=== PATIENT | male | born 1995 | race Caucasian/White ===

== ENCOUNTER 2017-04-14 17:43 | Emergency (ER) | payer SELFPAY ==
[2017-04-14 18:12] VITALS: BP 114/66
--- NOTE | 2017-04-14 18:52 | UC ---
Complaint Male HPI - HPI Summary HPI Summary: 22 yo male with warts on penis x weeks no urethral d/c or dysuria no pain no ulcerations - History of Current Complaint Chief Complaint: UCSkin Stated Complaint: PERSONAL Time Seen by Provider: 04/14/17 18:27 Hx Obtained From: Patient Onset/Duration: Gradual Onset, Lasting Weeks Timing: Constant Severity Initially: Mild Severity Currently: Mild Pain Intensity: 0 Pain Scale Used: 0-10 Numeric Location: Penis Associated Signs And Symptoms: Positive: Negative - Allergies/Home Medications Allergies/Adverse Reactions: Allergies Allergy/AdvReac Type Severity Reaction Status Date / Time No Known Allergies Allergy Verified 04/14/17 18:06 Home Medications: Home Medications NK [No Home Medications Reported] 04/14/17 [History Confirmed 04/14/17] PMH/Surg Hx/FS Hx/Imm Hx Previously Healthy: Yes - Surgical History Surgical History: None - Family History Known Family History: Negative: Cardiac Disease, Hypertension - Social History Alcohol Use: Occasionally Substance Use Type: None Smoking Status (MU): Current Some Day Smoker Type: Smokeless Tobacco Amount Used/How Often: 1 can q 3 days - Immunization History Most Recent Influenza Vaccination: Not the Vaccination Up to Date: Yes Review of Systems Constitutional: Negative Skin: Negative Eyes: Negative ENT: Negative Respiratory: Negative Cardiovascular: Negative Gastrointestinal: Negative Genitourinary: Negative Motor: Negative Neurovascular: Negative Musculoskeletal: Negative Neurological: Negative Psychological: Negative All Other Systems Reviewed And Are Negative: Yes Physical Exam Triage Information Reviewed: Yes Appearance: Well-Appearing, No Pain Distress, Well-Nourished Vital Signs: Initial Vital Signs Temp 99.2 F 04/14/17 18:07 Pulse 73 04/14/17 18:07 Resp 16 04/14/17 18:07 BP 114/66 04/14/17 18:07 Pulse Ox 100 04/14/17 18:07 Vital Signs Reviewed: Yes ENT: Positive: Hearing grossly normal. Negative: Nasal congestion, Nasal drainage, Tonsillar exudate, Trismus, Muffled/hoarse voice Neck: Positive: Supple, Nontender, No Lymphadenopathy Respiratory: Positive: Lungs clear, Normal breath sounds, No respiratory distress, No accessory muscle use Cardiovascular: Positive: RRR, No Murmur Neurological: Positive: Alert Psychological Exam: Normal Skin Exam: Other - two large genital warts at base of penis Complaint Male Course/Dx - Course Course Of Treatment: pt advised to have these addressed by urologist or tub wash operator-. explain risks of malignant transformation/risk to partners - Differential Dx/Diagnosis Provider Diagnoses: genital warts Discharge - Discharge Plan Condition: Stable Disposition: HOME Patient Education Materials: Genital Warts (ED) Referrals: Ricardo Waddell MD [Medical Doctor] - As Soon As Possible Jason LARIOS,Silvestre Perez [Medical Doctor] - As Soon As Possible Additional Instructions: I suggest you see a specialist to have these addressed
== END 2017-04-14 19:02 | disposition home or self-care (01) ==
LOC: UCCORT 17:43
DX: A63.0 Anogenital (venereal) warts (principal); Z72.0 Tobacco use
CPT/HCPCS: 99211; G0463

== ENCOUNTER 2017-07-06 07:23 | Emergency (ER) | payer BC ==
[2017-07-06] MEDS ORDERED: Tetan/Diph/Pertus SYR(Tdap)* 0.5 ML SYR(BOOSTRIX) use SYR IM ONE (07:36)
[2017-07-06 07:37] VITALS: BP 106/67
--- NOTE | 2017-07-06 07:44 | UC ---
Laceration HPI - HPI Summary HPI Summary: cut right pinky 24 hrs ago with glass - History Of Current Complaint Chief Complaint: UCLaceration Stated Complaint: RIGHT PINKY INJURY Time Seen by Provider: 07/06/17 07:33 Hx Obtained From: Patient Laceration Location: Finger - right 5th Mechanism Of Injury: Sharp Trauma - glass Onset/Duration: Sudden Onset, Lasting Days - 1, Still Present Severity: Moderate Aggravating Factors: Movement - Allergies/Home Medications Allergies/Adverse Reactions: Allergies Allergy/AdvReac Type Severity Reaction Status Date / Time seasonal Allergy Sneezing Uncoded 07/06/17 07:37 PMH/Surg Hx/FS Hx/Imm Hx Respiratory History: Asthma - Surgical History Surgical History: None - Family History Known Family History: Negative: Cardiac Disease, Hypertension - Social History Alcohol Use: Occasionally Substance Use Type: None Smoking Status (MU): Current Some Day Smoker Type: Smokeless Tobacco Amount Used/How Often: 1 can q 3 days - Immunization History Most Recent Influenza Vaccination: Not the Vaccination Up to Date: Yes Review of Systems Constitutional: Negative Eyes: Negative ENT: Negative Respiratory: Negative Cardiovascular: Negative Gastrointestinal: Negative Genitourinary: Negative Motor: Negative Neurovascular: Negative Musculoskeletal: Negative Neurological: Negative Psychological: Negative Is Patient Immunocompromised?: No All Other Systems Reviewed And Are Negative: Yes Physical Exam Triage Information Reviewed: Yes Appearance: Well-Appearing, No Pain Distress, Well-Nourished Vital Signs: Initial Vital Signs Temp 98.7 F 07/06/17 07:27 Pulse 63 07/06/17 07:27 Resp 20 07/06/17 07:27 BP 106/67 07/06/17 07:27 Vital Signs Reviewed: Yes Eyes: Positive: Conjunctiva Clear ENT: Positive: Normal ENT inspection, Hearing grossly normal, Pharynx normal Neck: Positive: Supple, Nontender, No Lymphadenopathy Respiratory: Positive: Chest non-tender, Lungs clear, Normal breath sounds Cardiovascular: Positive: RRR, No Murmur, Pulses Normal Skin: Positive: Other - right 5th finger distal phlangs , 1 cm laceration , minimal bleeding , 24 hrs old, no need to repair , good ROM of the right pinky with normal strength Laceration Repair - Laceration Repair 1 Description: Linear : No Repair Necessary Laceration Size After Repair: Length (cm) - 1, Width (mm) - 2 Cleansing Completed Via Routine Prep: Yes Irrigation With Pressure Irrigation Device: Yes Laceration Course/Dx - Differential Dx - Laceration/Wound Provider Diagnoses: laceration right 5th finger Discharge - Discharge Plan Condition: Stable Disposition: HOME Patient Education Materials: Laceration Without Closure (ED) Referrals: Dahlia Cpaellan MD [Primary Care Provider] - If Needed
== END 2017-07-06 08:05 | disposition home or self-care (01) ==
LOC: UCCORT 07:23
DX: S61.216A Laceration without foreign body of right little finger without damage to nail, initial encounter (principal); W25.XXXA Contact with sharp glass, initial encounter; F17.220 Nicotine dependence, chewing tobacco, uncomplicated
CPT/HCPCS: 90471; 90715; 99212; G0463

== ENCOUNTER 2018-04-04 08:48 | Emergency (ER) | payer BC ==
[2018-04-04 09:07] VITALS: BP 123/68
--- NOTE | 2018-04-04 09:27 | ED ---
Upper Extremity Pain - HPI Summary HPI Summary: 23 yr old male with left ring finger injury. Injury occurred on April 01. The patient states he put a screw through his left ring finger when screwing two pieces of wood together with a power drill. He then unscrewed it from his left ring finger. He went to [facility] ER, and states he had xrays. He states he was given antibiotics. He states he did not take the antibiotic as prescribed, and did not bother picking up his prescription from the pharmacy. He states he has paper work and was told to follow up with a hand specialist, but cannot find the paper work. He states he did not do this at work. He reports he has had numbness to the left ring finger that is distal to the injury since the injury occurred. He has called [facility] and says that he has hydrocodone, ibuprofen and doxycycline prescription at the pharmacy waiting for him. He states he had a tetanus shot one year ago. He has not had any drainage, redness or increased pain to the left ring finger over the weekend. He went camping. He finally took the one antibiotic pill he was dispensed from the ER at [place] last evening. - History of Current Complaint Chief Complaint: Felisa Stated Complaint: LEFT HAND PUNCTURE Time Seen by Provider: 04/04/18 09:08 - Allergies/Home Medications Allergies/Adverse Reactions: Allergies Allergy/AdvReac Type Severity Reaction Status Date / Time No Known Allergies Allergy Verified 04/04/18 09:00 Home Medications: Home Medications Antibiotic Single Dose 04/04/18 [History] oxyCODONE/Acetamin 5/325 MG* [Percocet 5/325 TAB*] 1 tab PO ONCE 04/04/18 [ History Confirmed 04/04/18] PMH/Surg Hx/FS Hx/Imm Hx Previously Healthy: Yes Respiratory History: Reports: Hx Asthma - Immunization History Immunizations Up to Date: Yes Infectious Disease History: No Infectious Disease History: Denies: Traveled Outside the [place] in Last 30 Days - Family History Known Family History: Positive: None Negative: Cardiac Disease, Hypertension - Social History Alcohol Use: 1 beer/daily Substance Use Type: Reports: None Smoking Status (MU): Light Every Day Tobacco Smoker Type: Smokeless Tobacco Amount Used/How Often: 2 cans/week Length of Time of Smoking/Using Tobacco: Since Age 18 Review of Systems Constitutional: Negative Positive: Other - no drainage or increased pain from the finger All Other Systems Reviewed And Are Negative: Yes Physical Exam Triage Information Reviewed: Yes Vital Signs On Initial Exam: Initial Vitals Temp Pulse Resp BP Pulse Ox 98.5 F 82 16 123/68 99 04/04/18 09:01 04/04/18 09:01 04/04/18 09:01 04/04/18 09:01 04/04/18 09:01 Vital Signs Reviewed: Yes Appearance: Positive: Well-Appearing, No Pain Distress Skin: Positive: Warm, Skin Color Reflects Adequate Perfusion Head/Face: Positive: Normal Head/Face Inspection Eyes: Positive: EOMI ENT: Positive: Normal ENT inspection Neck: Positive: Nontender Respiratory/Lung Sounds: Positive: Clear to Auscultation, Breath Sounds Present Cardiovascular: Positive: Pulses are Symmetrical in both Upper and Lower Extremities Abdomen Description: Negative: Distended Musculoskeletal: Positive: Other - left ring finger with puncture wound lateral and medial side of the finger. Slight decreased strength of profundus tendon. No redness, tenderness. He has decreased sensation in both digital nerve distributions of the distal left ring finger. No joint effusions. . Neurological: Positive: Alert, Oriented to Person Place, Time, CN Intact II-III , Other Psychiatric: Positive: Normal - Terry Coma Scale Best Eye Response: 4 - Spontaneous Best Motor Response: 6 - Obeys Commands Best Verbal Response: 5 - Oriented Coma Scale Total: 15 Diagnostics - Vital Signs Vital Signs Temp Pulse Resp BP Pulse Ox 04/04/18 09:01 98.5 F 82 16 123/68 99 - Laboratory Lab Statement: Any lab studies that have been ordered have been reviewed, and results considered in the medical decision making process. Course/Dx - Course Course Of Treatment: 23 yr old male with ring finger puncture wound injury, and digital nerve injury and some weakness in Profundus tendon. He has been non compliant with prescriptions and directions from [facility], and at this point needs to see a hand specialist for his sensory deficit, and potential profundus flexor tendon injury. He will shredder picker his prescriptions at the pharmacy that were already sent in by [facility]. I have personally called Dr Agrawal/Dr Rios's office here in [place] and made an appointment for this patient with the hand surgeon for tomorrow morning. The patient is going to the Hand surgeon office here in [place] right after discharge to fill out his paper work and get the other details of his appointment. The patient is aware he has a nerve injury and is at risk for further injuries, and the need to avoid hot and cold injuries. He is aware he needs to go to the hospital for any redness, swelling drainage. He is aware he needs to shredder picker his prescriptions already sent by the provider at [facility]. He is aware that he needs to keep his appointment with the hand specialst. - Diagnoses Provider Diagnoses: Puncture wound, Digital nerve injury Discharge - Sign-Out/Discharge Documenting (check all that apply): Discharge/Admit/Transfer - Discharge Plan Condition: Good Disposition: HOME Patient Education Materials: Puncture Wound (ED) Referrals: Non Staff,Doctor [Primary Care Provider] - Gabriel Agrawal MD [Medical Doctor] - Morgan Becker MD [Medical Doctor] - Additional Instructions: GO TO [address] [place] [address] when you leave here today to meet with the hand surgeon office. Your appointment will also be at [address] [place] [address] tomorrow as well. You have a nerve injury to your finger. Get your prescriptions from the pharmacy and take them as directed. Go to the hand surgeon office after leaving here, and for your appointment tomorrow morning. - Billing Disposition and Condition Condition: GOOD Disposition: Home
--- NOTE | 2018-04-04 09:41 | RAD ---
HISTORY: screw to finger COMPARISONS: None VIEWS: 3, Frontal, lateral, and oblique views of the fourth digit of the left hand FINDINGS: BONE DENSITY: Normal. BONES: There is no displaced fracture. Incidentally noted within the middle phalanx of the fourth digit is a nonaggressive appearing sclerotic lesion of the cortex of the middle phalanx without periosteal reaction. This is slightly expansile. JOINTS: There is no arthropathy. ALIGNMENT: There is no dislocation. SOFT TISSUES: Unremarkable. OTHER FINDINGS: None. IMPRESSION: 1. NO ACUTE OSSEOUS INJURY TO THE FOURTH DIGIT. 2. INCIDENTALLY NOTED IS A NONAGGRESSIVE APPEARING LESION OF THE MIDDLE PHALANX OF THE FIFTH DIGIT. THE DIFFERENTIAL INCLUDES A AN OSTEOMA OR HEALED FIBROUS CORTICAL DEFECT. 3. IF SYMPTOMS PERSIST, RECOMMEND REPEAT IMAGING.
== END 2018-04-04 10:13 | disposition home or self-care (01) ==
LOC: UCCORT 08:48
DX: S61.235A Puncture wound without foreign body of left ring finger without damage to nail, initial encounter (principal); S64.495A Injury of digital nerve of left ring finger, initial encounter; F17.290 Nicotine dependence, other tobacco product, uncomplicated; J45.909 Unspecified asthma, uncomplicated; W45.8XXA Other foreign body or object entering through skin, initial encounter; Y93.89 Activity, other specified; Y92.9 Unspecified place or not applicable
CPT/HCPCS: 73140; 99211; G0463

== ENCOUNTER 2019-12-18 11:11 | Emergency (ER) | payer BC, OTHER ==
[2019-12-18 12:03] VITALS: BP 123/74
--- NOTE | 2019-12-18 12:22 | UC ---
Throat Pain/Nasal Maurizio HPI - HPI Summary HPI Summary: 24-year-old male with sore throat for the past 2 days. He denies any fever or chills. States he has a cough with clear sputum. - History of Current Complaint Chief Complaint: UCGeneralIllness Stated Complaint: ST/COUGH Time Seen by Provider: 12/18/19 11:56 Hx Obtained From: Patient Onset/Duration: Gradual Onset Severity: Mild Pain Intensity: 0 Cough: Productive - Minimally productive of clear sputum Associated Signs & Symptoms: Positive: Nasal Discharge - Allergies/Home Medications Allergies/Adverse Reactions: Allergies Allergy/AdvReac Type Severity Reaction Status Date / Time No Known Allergies Allergy Verified 12/18/19 12:00 Home Medications: Home Medications Escitalopram Oxalate [Lexapro 10 mg] 1 tab PO DAILY 12/18/19 [History Confirmed 12/18/19] PMH/Surg Hx/FS Hx/Imm Hx Previously Healthy: Yes - Surgical History Surgical History: None - Family History Known Family History: Positive: None Negative: Cardiac Disease, Hypertension - Social History Lives: With Family Alcohol Use: None Substance Use Type: None Smoking Status (MU): Light Every Day Tobacco Smoker Type: Smokeless Tobacco Amount Used/How Often: 2 cans/week Length of Time of Smoking/Using Tobacco: Since Age 18 - Immunization History Most Recent Influenza Vaccination: Not the Season Most Recent Tetanus Shot: 07/06/17 Vaccination Up to Date: Yes Review of Systems All Other Systems Reviewed And Are Negative: Yes ENT: Positive: Sore Throat, Nasal Discharge Respiratory: Positive: Cough Is Patient Immunocompromised?: No Physical Exam Triage Information Reviewed: Yes Appearance: Well-Appearing, No Pain Distress, Well-Nourished Vital Signs: Initial Vital Signs Temp 97.9 F 12/18/19 12:01 Pulse 64 12/18/19 12:01 Resp 17 12/18/19 12:01 BP 123/74 12/18/19 12:01 Pulse Ox 100 12/18/19 12:01 Vital Signs Reviewed: Yes Eyes: Positive: Conjunctiva Clear ENT: Positive: Pharyngeal erythema, TMs normal, Uvula midline Neck: Positive: Supple, Nontender, No Lymphadenopathy Respiratory: Positive: Lungs clear, Normal breath sounds, No respiratory distress, No accessory muscle use Cardiovascular: Positive: RRR, No Murmur, Pulses Normal, Brisk Capillary Refill Musculoskeletal Exam: Normal Neurological Exam: Normal Psychological Exam: Normal Skin Exam: Normal Throat Pain/Nasal Course/Dx - Course Course Of Treatment: Rapid Strep test: Negative The patient is comfortable here and nontoxic. He was basically sent here by his for a strep test because they have an 8-month-old at home. - Differential Dx/Diagnosis Provider Diagnosis: Pharyngitis Discharge ED - Sign-Out/Discharge Documenting (check all that apply): Patient Departure All imaging exams completed and their final reports reviewed: No Studies - Discharge Plan Condition: Good Disposition: HOME Patient Education Materials: Pharyngitis (ED) Referrals: [facility] [Outside] No Primary Care Phys,NOPCP [Primary Care Provider] - Additional Instructions: Increase fluids, warm saltwater gargles, throat lozenges. Follow up with your primary care provider or [facility] if no improvement in 3 or 4 days. - Billing Disposition and Condition Condition: GOOD Disposition: Home
== END 2019-12-18 12:36 | disposition home or self-care (01) ==
LOC: UCCORT 11:11
DX: J02.9 Acute pharyngitis, unspecified (principal); R09.89 Other specified symptoms and signs involving the circulatory and respiratory systems; F17.290 Nicotine dependence, other tobacco product, uncomplicated
CPT/HCPCS: 87651; 99211; G0463